=== PATIENT | male | born 1960 ===

== ENCOUNTER 2018-11-09 07:48 | Emergency (ER) | payer BC ==
[2018-11-09 08:01] VITALS: BP 109/71
--- NOTE | 2018-11-09 08:52 | UC ---
General HPI - HPI Summary HPI Summary: 58 yo gentleman c/o progressively worse Left eye itchiness, redness. Sx started approx 3 days ago, this am now sx in both eyes. Taking azithromycin last 3 days d/t lyme sx (via pcp in [place], [place] lives in [place] and is visiting through next week). No vis / aud issues other than some light sensitivity in L eye with bright light. No st, cough,cp, n/v. Mild runny nose. Some itchy eyes lately. - History of Current Complaint Chief Complaint: UCEye Stated Complaint: EYE COMPLAINT Time Seen by Provider: 11/09/18 08:52 Hx Obtained From: Patient Pain Intensity: 0 - Allergy/Home Medications Allergies/Adverse Reactions: Allergies Allergy/AdvReac Type Severity Reaction Status Date / Time No Known Allergies Allergy Verified 11/09/18 08:01 Home Medications: Home Medications Azithromycin TAB* [Zithromax TAB (Z-RADHA) 250 mg #6 tabs] 250 mg PO DAILY [History Confirmed 11/09/18] Cetirizine* [ZyrTEC 10 MG TAB*] 5 mg PO DAILY 11/09/18 [History Confirmed ] PMH/Surg Hx/FS Hx/Imm Hx Previously Healthy: Yes - however see hpi - Surgical History Surgical History: None - Family History Known Family History: Positive: Unknown - Social History Alcohol Use: Daily Alcohol Amount: 1 beer Substance Use Type: None Smoking Status (MU): Never Smoked Tobacco Review of Systems All Other Systems Reviewed And Are Negative: Yes Constitutional: Positive: Negative Skin: Positive: Negative - see hpi Eyes: Positive: Other - see hpi ENT: Positive: Other - see hpi Respiratory: Positive: Other - see hpi Cardiovascular: Positive: Other - see hpi Gastrointestinal: Positive: Other - see hpi Genitourinary: Positive: Other - see hpi Motor: Positive: Other - see hpi Neurovascular: Positive: Other - see hpi Musculoskeletal: Positive: Other: - see hpi Neurological: Positive: Other - see hpi Psychological: Positive: Negative Is Patient Immunocompromised?: No Physical Exam Triage Information Reviewed: Yes Appearance: Well-Appearing, Well-Nourished Vital Signs: Initial Vital Signs Temp 97.2 F 11/09/18 07:56 Pulse 60 11/09/18 07:56 Resp 16 11/09/18 07:56 BP 109/71 11/09/18 07:56 Pulse Ox 99 11/09/18 07:56 Vital Signs Reviewed: Yes Eye Exam: Other - L conj pink, runny R mild pink. Lids flipped no visible issues direct light. Direct opthl exam - nad (nondilated) has not worn contact lenses x several months, flourescein not done ENT Exam: Other - TMs bilat jeffrey slight runny nose ENT: Positive: Pharynx normal Neck exam: Normal Neck: Positive: Supple Respiratory Exam: Normal - rr normal, no tachypnea, no dyspnea Cardiovascular Exam: Normal - HR regular, nondiaphoretic Abdominal Exam: Normal Musculoskeletal Exam: Normal Neurological Exam: Normal Skin Exam: Normal Course/Dx - Course Course Of Treatment: REviewed coa / tx plan. Questions answered as posed to the best of my ability. - Diagnoses Provider Diagnosis: Conjunctivitis Discharge - Sign-Out/Discharge Documenting (check all that apply): Patient Departure All imaging exams completed and their final reports reviewed: No Studies - Discharge Plan Condition: Stable Disposition: HOME Prescriptions: Ciprofloxacin 0.3% OPTH.JAYNE* [Cipro 0.3% Opth*] 2 drop BOTH EYES Q8H 5 Days #1 btl Patient Education Materials: Serous Otitis Media (ED), Conjunctivitis (ED) Referrals: No Primary Care Phys,NOPCP [Primary Care Provider] - Additional Instructions: Follow up with your primary care physician, per routine schedule. Seek medical attention for worse or new problems in the meantime. Consider PATANOL, check with your doctor. - Billing Disposition and Condition Condition: STABLE Disposition: Home
== END 2018-11-09 09:24 | disposition home or self-care (01) ==
LOC: UCEAST 07:48
DX: H10.33 Unspecified acute conjunctivitis, bilateral (principal); R09.89 Other specified symptoms and signs involving the circulatory and respiratory systems
CPT/HCPCS: 99202; G0463